=== PATIENT | female | born 1930 | race Caucasian/White ===

== ENCOUNTER 2018-03-30 06:49 | Day surgery (SDC) | payer OTHER, MEDICARE ==
[2018-03-30] MEDS ORDERED: NA CHLORIDE 0.9% 500 ML ONE (07:10)
[2018-03-30] MEDS ORDERED: LIDOCAINE 2% MPF 5 ML VIAL ONE ×2 (07:13→07:49)
[2018-03-30] MEDS ORDERED: TETRACAINE HCL 0.5% 2ML OPTH ONE (07:13)
[2018-03-30] MEDS ORDERED: LIDOCAINE HCL/PF 3.5% OPTH GEL ONE (07:14)
[2018-03-30] MEDS ORDERED: BUPIVACAINE 0.25% PF 30 ML VIAL ONE (07:14)
[2018-03-30 07:20] LABS: Protime INR 1.12
[2018-03-30] MEDS: CYCLOPENTOLATE 1% OPTH 2 ML ONE ×3 (07:23→07:33)
[2018-03-30] MEDS: PHENYLEPHRINE 10% OPTH 5ML ONE ×3 (07:23→07:33)
[2018-03-30] MEDS ORDERED: PROPOFOL 200 MG/20 ML VIAL IV ONE (07:49)
[2018-03-30] MEDS ORDERED: MIDAZOLAM HCL 2 MG/2 ML INJ ONE (07:54)
[2018-03-30] MEDS ORDERED: FENTANYL CITR 100 MCG/2 ML ONE (07:54)
[2018-03-30] MEDS ORDERED: NS 0.9% VIAL 10 ML ONE (08:03)
[2018-03-30] MEDS ORDERED: EPINEPHRINE/PF 1 MG/ML AMP ONE (08:04)
[2018-03-30] MEDS ORDERED: BALANCED SALT IRRIG PLAIN 500 ML BTL IRR ONE (08:05)
[2018-03-30] MEDS ORDERED: LIDOCAINE 1% MPF 2 ML AMPULE ONE (08:06)
[2018-03-30] MEDS ORDERED: DUOVISC 1 KIT OPTH ONE ×2 (08:06→09:12)
[2018-03-30] MEDS ORDERED: MOXIFLOXACIN HCL 10 DROPS/ML **OR USE OPTH ONE (08:06)
--- NOTE | 2018-03-30 09:03 | P.BOP ---
Preoperative diagnosis: Nuclear sclerotic cataract OS Postoperative diagnosis: Same Primary procedure: Phacoemulsification with IOL OS Estimated blood loss: None Anesthesia: Local (Topical with anesthesia for cataract surgery) Complications: None Implants: ZCB00 +19.5 Transferred to: Other (Day surgery) Condition: Good
--- NOTE | 2018-03-30 19:57 | OP ---
Date of Procedure: 03/30/2018 Surgeon: Nancy Cabral MD Anesthesiologist: 1. Kate Portillo CRNA. 2. Sandeep Mckeon M.D. Preoperative Diagnosis: Nuclear sclerotic cataract, left eye. Operation Performed: Phacoemulsification with intraocular lens, left eye. Anesthesia: Per cataract surgery. Complications: None. Description Of Procedure: In the operating room, the patient was prepped and draped in the usual sulaiman rile fashion for ophthalmic surgery. A lid speculum was placed in the left eye. Two paracentesis si german were made superiorly and inferiorly in the limbal cornea. Viscoat was placed in the anterior josé miguel mber and a crescent blade was used to make a corneal groove and tunnel, and a keratome was used to en ter the anterior chamber. Provisc was placed in the anterior chamber and a 360 degree capsulotomy wa s performed with a cystitome. The lens was hydrodissected with BSS and rotated freely. The lens was removed with a stop and chop technique. 14.38 Phaco CDE was used to remove the lens. Residual hiram ex was removed with the irrigation and aspiration. Provisc was placed in the capsular bag. A ZCB00 +19.5 lens was placed in the capsular bag without complications. Irrigation and aspiration was used to remove residual viscoelastic. The paracentesis sites were hydrated with BSS. The wound and parac entesis sites were inspected and found to be watertight. Vigamox 0.07 cc was placed intracamerally a t the end of the procedure. The eye was irrigated with balanced salt solution. The eye was patched with a soft cotton patch and Rowley metal shield. The patient was returned to day surgery in good condition. Comments: Akten was placed in the eye in Day Surgery and irrigated out of the eye in the OR. Preser vative free 1% lidocaine was placed in the anterior chamber prior to Viscoat. Discharge Instructions: Ms. Aguilar was discharged to home in good condition. She is to follow up [facility] Dr. Cabral in the morning. ROYAL/TIANAL Voice ID: [id number] Report ID: [id number]
== END 2018-03-30 09:35 | disposition home or self-care (01) ==
LOC: OR 06:49
PROVIDERS: ATTEND Ophthalmology Retina Specialist
PROC: 08RK3JZ Replacement of Left Lens with Synthetic Substitute, Percutaneous Approach (ICD-10-PCS; principal; 2018-03-30 08:30)
DX: H25.12 Age-related nuclear cataract, left eye (principal); E03.9 Hypothyroidism, unspecified; I10 Essential (primary) hypertension; I48.91 Unspecified atrial fibrillation; Z88.6 Allergy status to analgesic agent; Z82.49 Family history of ischemic heart disease and other diseases of the circulatory system; Z83.518 Family history of other specified eye disorder
CPT/HCPCS: 36415; 66984; 85610; J0171; J2001; J3010; J2250